=== PATIENT | male | born 1945 | race Caucasian/White ===

== ENCOUNTER → 2016-07-22 | Outpatient (CLI) | payer OTHER ==
[~2016-07-22] MED LIST: IOPAMIDOL (ISOVUE-370) 150 ML BTL IV ONE
== END ==
LOC: FIMAGING 12:02
DX: I71.6 Thoracoabdominal aortic aneurysm, without rupture (principal); Z95.5 Presence of coronary angioplasty implant and graft; N20.0 Calculus of kidney; N32.89 Other specified disorders of bladder
CPT/HCPCS: 71275; 74174; Q9967